=== PATIENT | female | born 1965 | race Caucasian/White ===

== ENCOUNTER 2018-12-01 14:08 | Outpatient (CLI) | payer BC | END 2018-12-01 14:09 | disposition home or self-care (01) | LOC: DTY/OP 14:08 | PROVIDERS: ATTEND Surgery | DX: E66.01 Morbid (severe) obesity due to excess calories (principal) | CPT/HCPCS: 97802 ==

== ENCOUNTER 2019-01-09 06:08 | Outpatient (CLI) | payer BC ==
[2019-01-09 17:13] LABS: #Basophils 0.1 thou/uL (0.0-0.2); #Eosinphils 0.2 thou/uL (0.0-0.7); #Lymphocytes 2.7 thou/uL (1.20-3.40); #Monocytes 0.6 thou/uL (0.11-0.59); #Neutrophils 7.5 thou/uL (1.40-6.50); %Basophils 0.9 % (0.0-1.0); %Lymphocytes 24.5 % (21.0-51.0); %Monocytes 5.3 % (0.0-10.0); %Neutrophils 67.3 % (42.0-75.0); Hemoglobin 13.2 g/dL (12.0-16.0); Hemoglobin A1c 5.4 % (4.0-6.0); Mean Corpuscular HGB CONC 32.1 g/dL (32.0-36.0); Mean Corpuscular Hemoglobin 27.1 pg (27.0-31.0); Mean Corpuscular Volume 84.3 fL (78.0-98.0); Platelet Count 307 thou/uL (130-400); RBC Distribution Width 13.3 % (11.5-14.5); Red Blood Cell (RBC) Count 4.87 mill/uL (4.20-5.40); White Blood Cell (WBC) Count 11.1 thou/uL (4.8-10.8)
[2019-01-09 17:21] LABS: BHCG - Serum Negative (NEGATIVE); Pregs Control Background? CLEAR/WHITE (CLR/WHITE); Pregs Control Bar Appear? YES (CONTROL BAR)
[2019-01-09 17:30] LABS: ALT (SGPT) 28 U/L (8-55); AST (SGOT) 21 U/L (5-34); Albumin 4.3 g/dL (3.5-5.0); Alkaline Phosphatase 65 U/L (40-150); Anion Gap 13 mmol/L (10-20); BUN (Urea Nitrogen) 20 mg/dL (9.8-20.1); Bilirubin, Direct 0.2 mg/dL (0.1-0.3); Bilirubin, Total 0.4 mg/dL (0.2-1.2); Calc. Creatinine Clearance 0 mL/min (70-130); Calcium 9.6 mg/dL (7.8-10.44); Carbon Dioxide 24 mmol/L (22-29); Chloride 103 mmol/L (98-107); Estimated GFR-MDRD Greater than 90; Globulin 3.1 g/dL (2.4-3.5); Glucose 102 mg/dL (70-105); Protein, Total 7.4 g/dL (6.0-8.3); Sodium 136 mmol/L (136-145)
--- NOTE | 2019-01-09 18:02 | RAD ---
CHEST TWO VIEWS: HISTORY: Preop. COMPARISON: None. FINDINGS: The lungs are clear. No pneumothorax. No effusion. No acute osseous abnormality. IMPRESSION: No acute intrathoracic abnormality. POS: HOME
== END 2019-01-09 06:09 | disposition home or self-care (01) ==
LOC: LABBT 06:08
PROVIDERS: ATTEND Surgery
DX: Z01.818 Encounter for other preprocedural examination (principal); E66.01 Morbid (severe) obesity due to excess calories
CPT/HCPCS: 71046; 80053; 80076; 83036; 84703; 85025; 93005; 93010

== ENCOUNTER 2019-01-09 16:30 | Inpatient (IN) | payer BC ==
[2019-01-11] MEDS ORDERED: Heparin 5,000 UNITS/ML VIAL ONE (06:27)
[2019-01-11] MEDS ORDERED: Fentanyl 100 MCG/2 ML VIAL ONE ×2 (06:49→08:36)
[2019-01-11] MEDS ORDERED: Bupivacaine/Epinephrine 0.25% 30 ML VIAL ONE (07:17)
[2019-01-11] MEDS ORDERED: Hydrocodone-Acetamin 15 ML UDCUP PO PRN (08:29)
[2019-01-11] MEDS ORDERED: Ondansetron PF 4 MG/2 ML Vial IVP PRN ×2 (08:29→09:09)
[2019-01-11] MEDS ORDERED: Dextrose 5% in Water 1,000 ML IV PRN (08:29)
[2019-01-11] MEDS ORDERED: hydrALAZINE 20 MG/ML VIAL SLOW IVP PRN (08:29)
[2019-01-11] MEDS ORDERED: Promethazine HCl 25 MG/ML VIAL IM PRN ×3 (08:29→09:09)
[2019-01-11] MEDS ORDERED: Dextrose 50% Abboject 50 ML SYRINGE SLOW IVP PRN (08:29)
[2019-01-11] MEDS ORDERED: diphenhydrAMINE 50 MG/ML VIAL IVP PRN ×2 (08:29→09:09)
[2019-01-11] MEDS ORDERED: SUGAMMADEX SODIUM 200 MG/2 ML VIAL ONE (08:30)
[2019-01-11] MEDS ORDERED: Promethazine HCl 25 MG/ML VIAL ONE (08:36)
[2019-01-11] MEDS ORDERED: Ondansetron HCl/PF 4 MG/2 ML Vial IVP PRN (08:50)
[2019-01-11] MEDS ORDERED: Ondansetron PF 4 MG/2 ML Vial ONE ×2 (09:04→11:18)
[2019-01-11] MEDS ORDERED: diphenhydrAMINE 50 MG/ML VIAL IM PRN (09:09)
[2019-01-11] MEDS ORDERED: fentaNYL Citrate/PF 2,000 MCG in Sodium Chloride 0.9% 60 ML IV PRN (09:09)
[2019-01-11] MEDS ORDERED: Zolpidem Tartrate 5 MG TAB PO PRN (09:09)
[2019-01-11] MEDS ORDERED: Ketorolac Tromethamine 30 MG/ML VIAL IVP PRN (09:09)
[2019-01-11] MEDS ORDERED: diphenhydrAMINE 25 MG CAP PO PRN (09:09)
[2019-01-11] MEDS ORDERED: Naloxone HCl 0.4 mg/ml Vial IV PRN (09:09)
[2019-01-11] MEDS ORDERED: Communication Order-Pharmacy FS SCH (09:15)
[2019-01-11] MEDS ORDERED: D5 1/2 NS w/20 mEq KCL 1,000 ML ONE (09:20)
[2019-01-11] MEDS ORDERED: Glycopyrrolate 0.2 MG/ML 5 ML SYRINGE ONE (11:18)
[2019-01-11] MEDS ORDERED: Lidocaine 2% PF 5 ML VIAL ONE (11:18)
[2019-01-11] MEDS ORDERED: Metoclopramide HCl 10 MG/2 ML VIAL ONE (11:18)
[2019-01-11] MEDS ORDERED: ePHEDrine 50 MG/ML VIAL ONE (11:18)
[2019-01-11] MEDS ORDERED: PROPOFOL 200 MG/20 ML VIAL ONE (11:18)
[2019-01-11] MEDS ORDERED: diphenhydrAMINE 50 MG/ML VIAL ONE (11:18)
[2019-01-11] MEDS ORDERED: Rocuronium Bromide 10 MG/ML (10ML VIAL) ONE (11:18)
[2019-01-11] MEDS ORDERED: Ketorolac Tromethamine 30 MG/ML VIAL ONE (11:18)
[2019-01-11] MEDS ORDERED: Dexamethasone 20 MG/5 ML VIAL ONE (11:18)
[2019-01-11] MEDS ORDERED: Ketorolac Tromethamine 30 MG/ML VIAL IVP SCH (12:00)
--- NOTE | 2019-01-11 12:41 | OP ---
DATE OF PROCEDURE: 01/11/2019 PREOPERATIVE DIAGNOSIS: Morbid obesity. PROCEDURES PERFORMED: Laparoscopic sleeve gastrectomy, esophagogastroscopy. INDICATIONS: A 53-year-old female, morbidly obese, who has attempted multiple weight loss programs without success. FINDINGS: A 38-[place] bougie used. DESCRIPTION OF PROCEDURE: After informed consent was obtained, the patient was taken to the operating room and given general endotracheal anesthesia and placed in the supine position. Abdomen was prepped and draped in usual fashion. Local anesthesia was infiltrated subcutaneously and deep. A 12-mm incision was performed approximately 8 inches below the xiphoid slight to the left. Veress needle was inserted. Drop test was performed. Pneumoperitoneum was created to a volume of 2 L of carbon dioxide. Utilizing a bladeless 12-mm trocar and 0-degree laparoscope, direct visual entry into the abdominal cavity was performed. Pneumoperitoneum was then created to a pressure of 15 mmHg and the patient was placed in steep reverse Trendelenburg position. Mitchel liver retractor was inserted. Left lobe of liver retracted superiorly. The pylorus was identified. A 12-mm port placed on the right beneath it and two 12s placed left subcostal. The omentum was taken off the greater curvature 5 cm from the pylorus utilizing the LigaSure. Short gastrics divided with LigaSure and the left crura defined with the LigaSure. A 38-[place] bougie inserted, directed into the antrum. The linear 60 mm green load stapler used to divide the antrum to the bougie, gold load along the bougie, and a series of blues through the angle of His. Intraoperative endoscopy was performed. The video endoscope was inserted under direct vision and advanced into the sleeve. The staple line was inspected. There was no bleeding. The staple line was then tested by inflating the new stomach with pressurized air under water. There was no air leak. Stomach decompressed. Scope was removed. The remnant stomach was removed from the abdomen through the left lateral port site. The fascia was closed with 0 Vicryl suture and the GraNee needle. Trocars and retractors were removed. Skin was closed with interrupted 4-0 Rapide. Dermabond applied. The patient tolerated the procedure well, transferred to Recovery in good condition. Sponge and needle count verified correct x2. Job ID: [id number]
[2019-01-11 13:24] VITALS: BMI 41.3
[2019-01-11] MEDS: Enoxaparin Sodium 40 MG/0.4 ML SYRINGE SC SCH (13:29)
[2019-01-11] MEDS ORDERED: CEFAZOLIN 2 GM in Premix Bag 1 BAG IVPB SCH (14:00)
[2019-01-11] MEDS: CEFAZOLIN 2 GM in Premix Bag 1 BAG IVPB SCH ×2 (16:45→23:19)
[2019-01-11] MEDS: Pantoprazole 40 MG VIAL IVP SCH (17:48)
[2019-01-11] MEDS: D5 1/2 NS w/20 mEq KCL 1,000 ML IV SCH (17:48)
[2019-01-12] MEDS: D5 1/2 NS w/20 mEq KCL 1,000 ML IV SCH ×4 (00:29→23:59)
[2019-01-12 06:43] LABS: #Lymphocytes 1.8 thou/uL (1.20-3.40); #Monocytes 0.8 thou/uL (0.11-0.59); #Neutrophils 11.4 thou/uL (1.40-6.50); %Basophils 0.1 % (0.0-1.0); %Eosinophils 0.2 % (0.0-10.0); %Monocytes 5.6 % (0.0-10.0); %Neutrophils 81.2 % (42.0-75.0); Hemoglobin 10.7 g/dL (12.0-16.0); Mean Corpuscular HGB CONC 30.5 g/dL (32.0-36.0); Mean Corpuscular Hemoglobin 26.1 pg (27.0-31.0); Mean Corpuscular Volume 85.6 fL (78.0-98.0); Mean Platelet Volume 6.9 fL (7.4-10.4); Platelet Count 354 thou/uL (130-400); RBC Distribution Width 13.7 % (11.5-14.5); Red Blood Cell (RBC) Count 4.09 mill/uL (4.20-5.40); White Blood Cell (WBC) Count 14.1 thou/uL (4.8-10.8)
[2019-01-12 07:04] LABS: Anion Gap 10 mmol/L (10-20); BUN (Urea Nitrogen) 8 mg/dL (9.8-20.1); Calc. Creatinine Clearance 179 mL/min (70-130); Calcium 9.2 mg/dL (7.8-10.44); Carbon Dioxide 26 mmol/L (22-29); Chloride 103 mmol/L (98-107); Estimated GFR-MDRD Greater than 90; Glucose 121 mg/dL (70-105); Sodium 135 mmol/L (136-145)
[2019-01-12] MEDS: Enoxaparin Sodium 40 MG/0.4 ML SYRINGE SC SCH (08:26)
[2019-01-12] MEDS: Pantoprazole 40 MG VIAL IVP SCH (08:26)
[2019-01-12] MEDS ORDERED: Hydrocodone-Acetamin 15 ML UDCUP PO PRN (12:06)
--- NOTE | 2019-01-12 13:00 | RAD ---
[facility] HISTORY: Obesity. Bariatric surgery. FINDINGS: Single column contrast evaluation shows postoperative changes consistent with gastric sleev e procedure. No evidence of obstruction or leak. Fluoroscopy time 0.2 minutes.
--- NOTE | 2019-01-12 17:37 | PRG ---
DATE OF SERVICE: 01/12/2019 SUBJECTIVE: The patient's pain is okay. She is having difficulty in taking enough orally to stay hydrated, so she still has an IV. OBJECTIVE: VITAL SIGNS: Temperature is 98, pulse 94, blood pressure 120/85. GENERAL: She is up, awake, and alert. ABDOMEN: Soft. The incisions are healing well. Her swallow study is fine. There is no obstruction. ASSESSMENT: Still a little bit dysphagia. PLAN: Keep overnight. Hopefully by tomorrow, if she will be able to be taken p.o., to go home. Job ID: [id number]
[2019-01-13 07:32] VITALS: BP 136/78; TEMP 98.5
[2019-01-13] MEDS: Pantoprazole 40 MG VIAL IVP SCH (08:17)
[2019-01-13] MEDS: Enoxaparin Sodium 40 MG/0.4 ML SYRINGE SC SCH (08:18)
[2019-01-13] MEDS: D5 1/2 NS w/20 mEq KCL 1,000 ML IV SCH (08:39)
--- NOTE | 2019-01-13 16:55 | DIS ---
DATE OF ADMISSION: 01/11/2019 DATE OF DISCHARGE: 01/13/2019 DISCHARGE DIAGNOSIS: Morbid obesity. PROCEDURES DURING ADMISSION: Laparoscopic sleeve gastrectomy, intraoperative esophagogastroscopy, and postoperative Gastrografin swallow. HOSPITAL COURSE: The patient was admitted, taken to the operating room, where she underwent sleeve gastrectomy. Postoperatively, x-ray was fine, but she had difficulty in drinking much fluid early on, so she was kept for an extra day. She is doing much better now. She is tolerating liquids well. She is discharged home on hydrocodone and Zofran. She will follow up with me in 2 weeks. Job ID: [id number]
== END 2019-01-13 09:35 | disposition home or self-care (01) | DRG 621 ==
LOC: SURG A 01-11 05:51
PROVIDERS: ADMIT Surgery; ATTEND Surgery
PROC: 0DB64Z3 Excision of Stomach, Percutaneous Endoscopic Approach, Vertical (ICD-10-PCS; principal; 2019-01-11)
PROC: 0DJ68ZZ Inspection of Stomach, Via Natural or Artificial Opening Endoscopic (ICD-10-PCS; 2019-01-11)
DX: E66.01 Morbid (severe) obesity due to excess calories (principal); R13.10 Dysphagia, unspecified; Z68.41 Body mass index [BMI] 40.0-44.9, adult
CPT/HCPCS: 36415; 71046; 74241; 80048; 80053; 80076; 83036; 84703; 85025; 88307; 88312; 93005; 93010; C9113; J0131; J0690; J1100; J1200; J1644; J1650; J1885; J2001; J2405; J2550; J2704; J2765; J3010; J3490